=== PATIENT | female | born 1965 | race Caucasian/White ===

== ENCOUNTER → 2020-10-01 | Outpatient (CLI) | payer OTHER ==
[~2020-10-01] MED LIST: BREO ELLIPTA 11 EACH INH; BUSPIRONE HCL15 MG PO; CELEXA40 MG PO; CLONIDINE HCL0.1 MG PO; DONEPEZIL HCL10 MG PO; GABAPENTIN300 MG PO; GABAPENTIN400 MG PO; HYDROCHLOROTH12.5 MG PO; IBU800 MG PO; LEVOTHYROXINE50 MC1 PO; LEVOTHYROXINE50 MCG PO; LOSARTAN POTASS25 MG PO; LOVENOX40 MG/0.4 SQ; MECLIZINE HCL25 MG PO; MINIPRESS CAP 11 MG PO; MOBIC15 MG PO; PROTONIX 40 MG40 M1 PO; REQUIP0.25 MG PO; RISPERIDONE1 MG PO; ROXICODONE5 MG PO; SINGULAIR10 MG PO; TRAZODONE HCL100 MG PO; TYLENOL #3 PO; VALIUM5 MG PO; VENLAFAXINE HC150 MG PO; VENTOLIN HFA 66.7 GM INH; ZOFRAN 4 MG TAB4 MG PO
[2020-10-01 12:01] LABS: HEMOGLOBIN 13.8 gm/dl (12.3-15.3); RED BLOOD COUNT 4.39 M/UL (4.00-5.10); WHITE BLOOD COUNT 5.7 K/UL (4.5-11.0)
[2020-10-01 12:19] LABS: BUN/CREATININE RATIO 23 (0-10)
== END ==
LOC: OPSV2 11:00 → EDSTATUS 11:00 → OPSV2 11:08
PROVIDERS: Orthopaedic Surgery
DX: Z01.818 Encounter for other preprocedural examination (principal); M17.11 Unilateral primary osteoarthritis, right knee; J98.4 Other disorders of lung; I44.0 Atrioventricular block, first degree; R94.31 Abnormal electrocardiogram [ECG] [EKG]
CPT/HCPCS: 36415; 71046; 80048; 81001; 85027; 85610; 85730; 87081; 87086; 93005

== ENCOUNTER 2020-10-11 07:27 | Inpatient (IN) | payer OTHER ==
[~2020-10-11] VITALS: Ht 165.1 cm; Wt 90.7 kg
[~2020-10-11 07:27] MED LIST changes: -BUSPIRONE HCL15 MG PO; -CLONIDINE HCL0.1 MG PO; -DONEPEZIL HCL10 MG PO; -GABAPENTIN300 MG PO; -GABAPENTIN400 MG PO; -LEVOTHYROXINE50 MCG PO; -LOVENOX40 MG/0.4 SQ; -MECLIZINE HCL25 MG PO; -MINIPRESS CAP 11 MG PO; -MOBIC15 MG PO; -PROTONIX 40 MG40 M1 PO; -REQUIP0.25 MG PO; -RISPERIDONE1 MG PO; -ROXICODONE5 MG PO; -TRAZODONE HCL100 MG PO; -VENLAFAXINE HC150 MG PO; -ZOFRAN 4 MG TAB4 MG PO
[2020-10-12 03:46] LABS: HEMOGLOBIN 11.1 gm/dl (12.3-15.3); RED BLOOD COUNT 3.58 M/UL (4.00-5.10); WHITE BLOOD COUNT 8.3 K/UL (4.5-11.0)
[2020-10-12] MEDS ORDERED: ZOFRAN 4 MG TAB4 MG PO (08:34)
[2020-10-12] MEDS ORDERED: ROXICODONE5 MG PO (08:34)
[2020-10-12] MEDS ORDERED: MOBIC15 MG PO (08:34)
[2020-10-12] MEDS ORDERED: GABAPENTIN300 MG PO (08:34)
[2020-10-12] MEDS ORDERED: LOVENOX40 MG/0.4 SQ (08:34)
[2020-10-12] MEDS ORDERED: MECLIZINE HCL25 MG PO (09:40)
[2021-02-07] MEDS ORDERED: CLONIDINE HCL0.1 MG PO (15:57)
[2021-02-07] MEDS ORDERED: GABAPENTIN400 MG PO (16:01)
[2021-02-07] MEDS ORDERED: LEVOTHYROXINE50 MCG PO (16:03)
[2021-02-07] MEDS ORDERED: MINIPRESS CAP 11 MG PO (16:05)
[2021-02-07] MEDS ORDERED: VENLAFAXINE HC150 MG PO (16:06)
[2021-02-07] MEDS ORDERED: PROTONIX 40 MG40 M1 PO (16:07)
[2021-02-07] MEDS ORDERED: IBU800 MG PO (16:07)
[2021-02-07] MEDS ORDERED: BUSPIRONE HCL15 MG PO (16:08)
[2021-02-07] MEDS ORDERED: DONEPEZIL HCL10 MG PO (16:09)
[2021-02-07] MEDS ORDERED: RISPERIDONE1 MG PO ×3 (16:10→16:12)
[2021-02-07] MEDS ORDERED: TRAZODONE HCL100 MG PO (16:12)
[2021-02-07] MEDS ORDERED: REQUIP0.25 MG PO (16:14)
== END 2020-10-12 14:05 | disposition home or self-care (01) | DRG 470 ==
LOC: OR 07:27 → EDSTATUS 10:00 → M/S 15:25 → OR 15:25 → M/S 15:29
PROVIDERS: Physician Assistant; ADMIT Orthopaedic Surgery
PROC: 8E0ZXY6 Isolation (ICD-10-PCS; 2020-10-11)
PROC: 0SRC0J9 Replacement of Right Knee Joint with Synthetic Substitute, Cemented, Open Approach (ICD-10-PCS; principal; 2020-10-11 10:00)
DX: M17.0 Bilateral primary osteoarthritis of knee (principal); I10 Essential (primary) hypertension; K21.9 Gastro-esophageal reflux disease without esophagitis; J44.9 Chronic obstructive pulmonary disease, unspecified; Z20.822 Contact with and (suspected) exposure to COVID-19; E03.9 Hypothyroidism, unspecified; E66.9 Obesity, unspecified; Z90.710 Acquired absence of both cervix and uterus; Z88.8 Allergy status to other drugs, medicaments and biological substances; Z91.040 Latex allergy status; Z68.33 Body mass index [BMI] 33.0-33.9, adult
CPT/HCPCS: 36415; 73560; 80048; 84436; 84443; 84480; 85025; 86850; 86900; 86901; 97116-GP-CQ; 97162; 97165; 97530; C1713; C1776; J0171; J0690; J0735; J1650; J1885; J2001; J2250; J2270; J2405; J2704; J2795; J7120

== ENCOUNTER → 2021-02-07 | Outpatient (CLI) | payer OTHER ==
[~2021-02-07] MED LIST changes: +BUSPIRONE HCL15 MG PO; +CLONIDINE HCL0.1 MG PO; +DONEPEZIL HCL10 MG PO; +GABAPENTIN300 MG PO; +LEVOTHYROXINE50 MCG PO; +LOVENOX40 MG/0.4 SQ; +MECLIZINE HCL25 MG PO; +MINIPRESS CAP 11 MG PO; +MOBIC15 MG PO; +NEURONTIN400 MG PO; +PROTONIX 40 MG40 M1 PO; +REQUIP0.25 MG PO; +RISPERIDONE1 MG PO; +ROXICODONE5 MG PO; +TRAZODONE HCL100 MG PO; +VENLAFAXINE HC150 MG PO; +ZOFRAN 4 MG TAB4 MG PO
[2021-02-07 10:15] LABS: HEMOGLOBIN 13.9 gm/dl (12.3-15.3); RED BLOOD COUNT 4.8 M/UL (4.00-5.10); WHITE BLOOD COUNT 5.1 K/UL (4.5-11.0)
== END ==
LOC: OPSV2 08:52 → EDSTATUS 09:00
PROVIDERS: Orthopaedic Surgery
DX: Z01.818 Encounter for other preprocedural examination (principal); M17.12 Unilateral primary osteoarthritis, left knee; I10 Essential (primary) hypertension; R94.31 Abnormal electrocardiogram [ECG] [EKG]
CPT/HCPCS: 36415; 71046; 80048; 81001; 85025; 93005

== ENCOUNTER → 2021-02-20 | Outpatient (CLI) | payer OTHER | LOC: LAB 10:21 | PROVIDERS: Orthopaedic Surgery | DX: Z01.812 Encounter for preprocedural laboratory examination (principal); M17.12 Unilateral primary osteoarthritis, left knee; I10 Essential (primary) hypertension | CPT/HCPCS: 36415; 80048; 86850; 86900; 86901 ==

== ENCOUNTER 2021-02-21 07:26 | Inpatient (IN) | payer OTHER ==
[~2021-02-21] VITALS: Ht 167.6 cm; Wt 104.3 kg
[~2021-02-21 07:26] MED LIST changes: -DONEPEZIL HCL10 MG PO; -NEURONTIN400 MG PO; -REQUIP0.25 MG PO; -TRAZODONE HCL100 MG PO
[2021-02-21] MEDS ORDERED: NEURONTIN400 MG PO (16:01)
[2021-02-21] MEDS ORDERED: DONEPEZIL HCL10 MG PO (16:09)
[2021-02-21] MEDS ORDERED: RISPERIDONE1 MG PO (16:11)
[2021-02-21] MEDS ORDERED: TRAZODONE HCL100 MG PO (16:12)
[2021-02-21] MEDS ORDERED: REQUIP0.25 MG PO (16:14)
[2021-02-22 07:50] LABS: RED BLOOD COUNT 4.15 M/UL (4.00-5.10); WHITE BLOOD COUNT 14.9 K/UL (4.5-11.0)
[2021-02-22 08:07] LABS: BUN/CREATININE RATIO 20 (0-10)
[2021-02-23 05:21] LABS: HEMOGLOBIN 11.4 gm/dl (12.3-15.3); RED BLOOD COUNT 3.9 M/UL (4.00-5.10); WHITE BLOOD COUNT 11.2 K/UL (4.5-11.0)
== END 2021-02-23 11:16 | disposition home or self-care (01) | DRG 470 ==
LOC: UNDOADMIN 07:26 → CDU 07:26 → M/S 07:26 → CDU 15:20 → M/S 15:20
PROVIDERS: ADMIT Orthopaedic Surgery
PROC: 0SRD0J9 Replacement of Left Knee Joint with Synthetic Substitute, Cemented, Open Approach (ICD-10-PCS; principal; 2021-02-21 09:30)
DX: M17.12 Unilateral primary osteoarthritis, left knee (principal); I10 Essential (primary) hypertension; J44.9 Chronic obstructive pulmonary disease, unspecified; Z20.822 Contact with and (suspected) exposure to COVID-19; J45.909 Unspecified asthma, uncomplicated; E66.9 Obesity, unspecified; K21.9 Gastro-esophageal reflux disease without esophagitis; G43.909 Migraine, unspecified, not intractable, without status migrainosus; F41.9 Anxiety disorder, unspecified; F32.9 Major depressive disorder, single episode, unspecified; G25.81 Restless legs syndrome; F41.0 Panic disorder [episodic paroxysmal anxiety]; Z90.710 Acquired absence of both cervix and uterus; Z98.1 Arthrodesis status; Z88.6 Allergy status to analgesic agent; Z91.040 Latex allergy status; Z68.37 Body mass index [BMI] 37.0-37.9, adult
CPT/HCPCS: 36415; 73560; 80048; 85025; 86850; 86900; 86901; 94640; 94664; 94760; 97110-GP-CQ; 97116-GP-CQ; 97162; 97165; 97530-GP-CQ; C1713; C1776; J0171; J0592; J0690; J0735; J1100; J1170; J1650; J1885; J2250; J2270; J2400; J2704; J2795; J7120